=== PATIENT | male | born 1945 | race American Indian/Alaskan Native ===

== ENCOUNTER 2020-11-30 23:48 | Emergency (ER) | payer MEDICARE ==
--- NOTE | 2020-12-01 00:18 | Emergency Department Report ---
ED CPR HPI - General Stated Complaint: CARDIAC ARREST Time Seen by Provider: 12/01/20 00:04 - History of Present Illness Initial Comments: Patient is a 74-year-old F [place] male who is presenting in cardiac arrest. According paramedics and family the patient has been battling with some back problems for the last several weeks. Has been taking baclofen and pain medications which have been giving him hallucinations. Patient was seen earlier today by paramedics because the family believes his oxygen level was low. In actuality patient's hands were cold and his O2 sat and vital signs were within normal limits. Patient's son stated he was going to stay at the patient's house this evening because he had been much more agitated. The family checked on him at approximately 2300 and noted that the patient was no longer breathing. CPR was initiated by family. From the report it sounds as though there was good chest compressions with breaths being given. Paramedics arrived intubated patient started right-sided tibial IO and the patient was started on IV fluids and given a total of 4 rounds of epinephrine. Transport from highway painter arrival to arrival to the emergency department less than 15 minutes. Accu-Chek was 50 initially according to paramedics and the patient was given D50. Accu-Chek before the patient arrived was in the 30s. ED Review of Systems ROS: Stated complaint: CARDIAC ARREST Other details as noted in HPI Comment: Unobtainable due to pts medical conditions ED Physical Exam - General Limitations: Physical Limitation General appearance: obtunded - Head Head exam: Present: atraumatic, normocephalic - Eye Eye exam: Present: other (Pupils are fixed and dilated) - ENT ENT exam: Present: mucous membranes dry, other (Patient is intubated with a 7 oh endotracheal tube. Apparently approximately 200 cc of bloody contents were aspirated from the endotracheal tube prior to arrival. Some scant amount of blood in the tube currently with bagging.) - Neck Neck exam: Present: normal inspection - Respiratory Respiratory exam: Present: other (Rhonchi with bagging but no spontaneous breath sounds) - Cardiovascular Cardiovascular Exam: Present: other (Patient asystole on the monitor.) - GI/Abdominal GI/Abdominal exam: Present: other (Scaphoid abdomen.) - Rectal Rectal exam: Present: deferred - Extremities Exam Extremities exam: Present: normal inspection - Back Exam Back exam: Present: normal inspection - Neurological Exam Neurological exam: Present: other (GCS of 3) - Psychiatric Psychiatric exam: Absent: normal affect, normal mood - Skin Skin exam: Present: warm, dry, intact, normal color. Absent: rash ED Course - Reevaluation(s) Reevaluation #1: 12/01/20 00:18 Patient was brought to the room placed on our monitor. Initially in asystole. CPR was initiated. Patient given several rounds of epinephrine bicarb and D50. Initial Accu-Chek here after getting report that the Accu-Cheks were low in route show a low reading. Given additional D50 with no change in rhythm. Patient fixed and dilated on arrival. Patient pronounced at 0002 Critical care attestation.: If time is entered above; I have spent that time in minutes in the direct care of this critically ill patient, excluding procedure time. ED Disposition Clinical Impression: Cardiopulmonary arrest Disposition: DC-20 Is pt being admited?: No Does the pt Need Aspirin: No Condition: Stable Time of Disposition: 00:19
== END 2020-12-01 02:00 ==
LOC: ED 23:48
DX: I46.9 Cardiac arrest, cause unspecified (principal)
CPT/HCPCS: 92950; 99285